=== PATIENT | female | born 1995 | race Caucasian/White ===

== ENCOUNTER 2022-02-17 08:02 | Emergency (ER) | payer BC, MEDICAID ==
[~2022-02-17] VITALS: Ht 167.6 cm; Wt 70.0 kg
[2022-02-17 08:06] VITALS: BP 111/74
[2022-02-17 08:22] LABS: CLARITY URINE CLEAR (CLEAR); COLOR URINE YELLOW (YELLOW); KETONES URINE TRACE (NEGATIVE); LEUKOCYTE ESTERASE URINE 2+ (NEGATIVE); NITRITE URINE NEGATIVE (NEGATIVE); OCCULT BLOOD URINE TRACE (NEGATIVE); PROTEIN URINE TRACE (NEGATIVE); SPECIFIC GRAVITY URINE 1.029 (1.005-1.030)
[2022-02-17] MEDS ORDERED: CEPHALEXIN 250MG CAPSULE PO ONE (09:30)
[2022-02-17] MEDS ORDERED: CEPH500C2 MT (09:48)
[2022-02-17] MEDS ORDERED: PYR200 MT (09:48)
== END 2022-02-17 10:29 | disposition home or self-care (01) ==
LOC: ER 08:02
DX: N30.00 Acute cystitis without hematuria (principal)
CPT/HCPCS: 81003; 87077; 87186; 99283